=== PATIENT | female | born 1945 | race Caucasian/White ===

== ENCOUNTER → 2025-03-14 10:36 | Outpatient (BNVA) | payer MEDICARE, OTHER, SELFPAY | PROVIDERS: Family Provider Nurse Practitioner Family; PCP Nurse Practitioner Family; Visit Provider Nurse Practitioner Family | DX: I10 Essential (primary) hypertension (principal); F41.9 Anxiety disorder, unspecified; E55.9 Vitamin D deficiency, unspecified; Z79.899 Other long term (current) drug therapy; Z13.6 Encounter for screening for cardiovascular disorders | CPT/HCPCS: 80053; 80061; 81003; 82306; 83036; 84443; 85025 ==

== ENCOUNTER 2025-06-19 17:04 | Emergency (ER) | payer MEDICARE, OTHER, SELFPAY ==
[2025-06-19 17:12] VITALS: BP 191/87; PULSE 114; TEMP 36.9; O2SAT 96
--- NOTE | 2025-06-19 17:24 | ECG_ITS ---
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 Measurements Intervals [place] Rate: 103 P: 73 VT: 151 QRS: 63 QRSD: 93 T: 21 QT: 330 QTc: 432 Interpretive Statements SINUS TACHYCARDIA POSSIBLE LEFT ATRIAL ENLARGEMENT [-0.1mV P-WAVE IN V1/V2] MODERATE ST DEPRESSION [0.05+ mV ST DEPRESSION] Compared to ECG 01/28/2015 05:37:37 ST (T wave) deviation now present Sinus rhythm no longer present Electronically Signed On 06-19-2025 20:42:35 CDT by Ziyad Mckeon M.D. [email or web address]
--- OUTSIDE RECORDS SUMMARY | 2025-06-19 17:26 | XMS_ITS | Encounter Summary ---
Author Organization [facility] Address [address] [place] [address] Care Team Providers Care Marine Steamfitter Name Role Phone Kalina Benito MD Primary Care Provider +1- [phone] Encounter Details Date Type Department Care Team (Latest Contact Info) Description 07/23/1998 Outpatient Historical [facility] Family Medicine- [address] [place] [address] Ryan Hewitt, DO NO ADDRESS ON FILE Acute sinusitis, unspecified (Primary Dx) Social History Tobacco Use Types Packs/Day Years Used Date Smoking Tobacco: Never Assessed Comments Unknown Sex and Gender Information Value Date Recorded Sex Assigned at Not on file Legal 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
--- OUTSIDE RECORDS SUMMARY | 2025-06-19 17:26 | XMS_ITS | Encounter Summary ---
Author Organization [facility] Address [address] [place] [address] Care Team Providers Care Logistics Team Leader Name Role Phone Kalina Benito MD Primary Care Provider +1- [phone] Encounter Details Date Type Department Care Team (Latest Contact Info) Description 05/03/2001 Outpatient Historical [facility] Medicine [address] [phone] Ryan Hewitt DO NO ADDRESS ON FILE Sprain lumbar region (Primary Dx); Sciatica Social History Tobacco Use Types Packs/Day Years Used Date Smoking Tobacco: Never Assessed Comments Unknown Sex and Gender Information Value Date Recorded Sex Assigned at Not on file 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
--- OUTSIDE RECORDS SUMMARY | 2025-06-19 17:26 | XMS_ITS | Encounter Summary ---
Author Organization [facility] Address [address] [place] [address] Care Team Providers Care Used Car Sales Manager Name Role Phone Kalina Benito MD Primary Care Provider +1- [phone] Encounter Details Date Type Department Care Team (Latest Contact Info) Description 02/18/2006 Outpatient Historical [facility] Medicine [place] [address] [phone] Xin Hunt MD NO ADDRESS ON FILE Dizziness and Giddiness (Primary Dx); Unspecified Essential Hypertension; Volume Depletion, Unspecified Social History Tobacco Use Types Packs/Day Years Used Date Smoking Tobacco: Never Assessed Comments Unknown Sex and Gender Information Value Date Recorded Sex Assigned at Not on file 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
--- OUTSIDE RECORDS SUMMARY | 2025-06-19 17:26 | XMS_ITS | Clinical Summary ---
Author Organization [facility] Address [address] [facility] Attn: [place] [address] Care Team Providers Care Software Programmer Name Role Phone Kalina Benito MD Primary Care Provider +1- [phone] Allergies No known active allergies Active Problems Problem Noted Date Diagnosed Date Herpes zoster 12/26/2010 Increased blood pressure (not hypertension) 12/16 Family History Medical History Relation Name Comments Respiratory Disease Father Unknown Maternal Grandfather Heart Disease Maternal Grandmother Cancer Mother bone cancer Heart Disease Paternal Grandfather Cancer Paternal Grandmother Breast Cancer Neg Hx Colon Cancer Neg Hx Relation Name Status Comments Father Maternal Grandfather Maternal Grandmother Mother Paternal Grandfather Paternal Grandmother Social History Tobacco Use Types Packs/Day Years Used Date Smoking Tobacco: Never Smokeless Tobacco: Never Alcohol Use Standard Drinks/Week Comments No 0 (1 standard drink = 0.6 oz pur e alcohol) Comments Unknown Sex and Gender Information Value Date Recorded Sex Assigned at Not on file 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
--- OUTSIDE RECORDS SUMMARY | 2025-06-19 17:26 | XMS_ITS | Clinical Summary ---
Author Organization [facility] Address [address] [place] [address] Care Team Providers Care Revenue Specialist Name Role Phone Kalina Benito MD Primary Care Provider +1- [phone] Allergies No known active allergies Medications cyclobenzaprine (FLEXERIL) 10 mg Oral tabletIndication s:Low back pain Take 1 Tab by mouth 3 times daily as needed for Spasm. 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 Gender Identity Not on file Sexual Orientation Not on file Occupation Industry Job Start Date Job End Date Not on file Not on file Not on file Not on file Last Filed Vital Signs Vital Sign Reading Time Taken Comments Blood Pressure 160/100 12/04/2011 11:13 AM LIBRARY ACQUISITIONS TECHNICIAN Pulse 18 12/04/2011 11:13 AM LIBRARY ACQUISITIONS TECHNICIAN Temperature 36.4 C (97.5 F) 12/04/2011 11:13 AM LIBRARY ACQUISITIONS TECHNICIAN Respiratory Rate 18 12/04/2011 11:13 AM LIBRARY ACQUISITIONS TECHNICIAN Oxygen Saturation - - Inhaled Oxygen Concentration - - Weight 56.2 kg (124 lb) 12/04/2011 11:13 AM LIBRARY ACQUISITIONS TECHNICIAN Height 163.8 cm (5' 4.5 ) 12/04/2011 11:13 AM CS T Body Mass Index 20.96 12/04/2011 11:13 AM LIBRARY ACQUISITIONS TECHNICIAN Plan of Treatment Health Maintenance Due Date Last Done Comments DTAP/TDAP/TD VACCINES (1 - Tdap) 1964 Traditional Medicare (ACO) Annual Wellness Visit 04/24 PNEUMOCOCCAL VACCINE 50+ YEARS (1 of 1 - PCV) 04/24/19 96 ZOSTER VACCINE (1 of 2) 1996 OSTEOPOROSIS SCREENING 08/25/2018 08/25/2013 RSV VACCINE (60+ or ) (1 - 1-dose 75+ series) 2021 INFLUENZA VACCINE (#1) 2025 Insurance MEDICARE PART A AND [place] [facility] [id number] Care Teams Revenue Specialist Relationship Specialty Start Date End Date Kalina Benito MD [address] [place] [phone] PCP - General Family Practice 02/21/14
--- OUTSIDE RECORDS SUMMARY | 2025-06-19 17:26 | XMS_ITS | Encounter Summary ---
Author Organization [facility] Address [address] [place] [address] Care Team Providers Care Organic Preparation Analyst Name Role Phone Kalina Benito MD Primary Care Provider +1- [phone] Encounter Details Date Type Department Care Team (Latest Contact Info) Description 11/19/1998 Outpatient Historical [facility] Medicine [address] [phone] Ryan Hewitt, NO ADDRESS ON FILE Acute upper respiratory infections of unspecified site (Primary Dx) Social History Tobacco Use Types Packs/Day Years Used Date Smoking Tobacco: Never Assessed Comments Unknown Sex and Gender Information Value Date Recorded Sex Assigned at Not on file 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
--- OUTSIDE RECORDS SUMMARY | 2025-06-19 17:26 | XMS_ITS | Encounter Summary ---
Author Organization [facility] Address [address] [place] [address] Care Team Providers Care Freelance Graphic Designer Name Role Phone Kalina Benito MD Primary Care Provider +1- [phone] Encounter Details Date Type Department Care Team (Latest Contact Info) Description 05/04/2006 Outpatient Historical [facility] Medicine [address] [phone] Ryan Hewitt, NO ADDRESS ON FILE Generalized Osteoarthrosis, Involving Multiple Sites (Primary Dx); Breast Screening, Unspecified; Unspecified Backache Social History Tobacco Use Types Packs/Day Years Used Date Smoking Tobacco: Never Assessed Comments Unknown Sex and Gender Information Value Date Recorded Sex Assigned at Not on file Legal Sex Female 2:55 AM 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
--- OUTSIDE RECORDS SUMMARY | 2025-06-19 17:26 | XMS_ITS | Encounter Summary ---
Author Organization [facility] Address [address] [place] [address] Care Team Providers Care Vp Strategic Planning Name Role Phone Kalina Benito MD Primary Care Provider +1- [phone] Encounter Details Date Type Department Care Team (Latest Contact Info) Description 04/15/2006 Outpatient Historical [facility] Medicine [address] [phone] Ryan Hewitt DO NO ADDRESS ON FILE Unspecified Backache (Primary Dx); Unspecified Essential Hypertension Social History Tobacco Use Types Packs/Day Years Used Date Smoking Tobacco: Never Assessed Comments Unknown Sex and Gender Information Value Date Recorded Sex Assigned at Not on file Legal Sex Female 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
--- OUTSIDE RECORDS SUMMARY | 2025-06-19 17:26 | XMS_ITS | Encounter Summary ---
Author Organization [facility] Address [address] [place] [address] Care Team Providers Care Duplicate Maker Name Role Phone Kalina Benito MD Primary Care Provider +1- [phone] Encounter Details Date Type Department Care Team (Latest Contact Info) Description 12/12/2004 Outpatient Historical [facility] Family Medicine- [address] [place] [address] Xin Hunt MD NO ADDRESS ON FILE ACUTE BRONCHITIS (Primary Dx); ACUTE PHARYNGITIS Social History Tobacco Use Types Packs/Day Years Used Date Smoking Tobacco: Never Assessed Comments Unknown Sex and Gender Information Value Date Recorded Sex Assigned at Not on file Legal Sex Female 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
--- NOTE | 2025-06-19 20:35 | XRR_ITS ---
PROCEDURE INFORMATION: Exam: XR Left Shoulder Exam date and time: 06/19/2025 8:44 PM Age: 80 years old Clinical indication: Injury or trauma; Fall; Blunt trauma (contusions or hematomas); Shoulder; Left TECHNIQUE: Imaging protocol: Radiologic exam of the left shoulder. Views: 2 or more views. COMPARISON: No relevant prior studies available. FINDINGS: Bones/joints: There is demonstration of a slightly depressed fracture of the distal end left clavicle. The slight displacement and angulated appearance to the fracture fragments the distal end of the clavicle and AC joint remain in anatomical alignment. Soft tissues: Normal. XR/XR shoulder LT min 2V* [id number] IMPRESSION: Fracture of the distal clavicle slightly angulated and minimally displaced.
--- NOTE | 2025-06-19 21:59 | ED_ITS ---
HPI - Fall 2 General: Chief Complaint: Fall Stated Complaint: lt shoulder inj Time Seen by Provider: 06/19/25 19:52 History of Present Illness: 80-year-old female presents emergency ro om for left shoulder pain she had a fall 4 days ago. She was outside working she got lightheaded did not feel well went inside as she went inside her she got more dizzy and then collapsed. She denies any chest pain. She has not had any difficulty since then other than some bruising and pain after left shoulder. Is worse when she moves it. She otherwise been awake and active she has had a bit of a headache. She did strike her head and says some bruising on her left mandaen as well no further episodes since then. No focal neurologic deficits. Associated symptoms-after fall: Denies abdominal pain, chest pain or neck pain Related Data Previous Rx's ?Medication ?Instructions ?Recorded lisinopril 10 mg tablet See Rx Instructions .Route 0 06/19/25 .COMPLEX #90 tabs Allergies Allergy/AdvReac Type Severity Reaction Status Date / Time No Known Allergies Allergy Verified 06/19/25 17:20 Review of Systems 2 Const: Denies: fever(s) or chills Card: Denies: chest pain Resp: Denies: dyspnea GI: Denies: abdominal pain : Denies: dysuria, urinary frequency or urinary urgency Musc: Reports: joint pain; Denies: neck pain or back pain Skin/Breast: Denies: rash PFSH ED 2 PFSH: Medical History Acute pain of left shoulder due to trauma Syncope and collapse Anxiety Mixed hyperlipidemia Pharyngitis Essential hypertension RSV exposure Social History Smoking and tobacco/nicotine status: tobacco/nicotine user, details unknown Physical Exam 2 Const: COMMON NORMALS: no acute distress GENERAL APPEARANCE: cooperative and comfortable ORIENTATION/CONSCIOUSNESS: Yes awake, Yes oriented to person, Yes oriented to place and Yes oriented to time HENMT: COMMON NORMALS: normocephalic, atraumatic and hearing grossly normal bilaterally HEAD & SCALP: normocephalic and atraumatic Neck/C-Spine: OTHER: No pain with palpation along the spinous process of the cervical spine patient flex extend rotate side bends without any pain difficulty or step-off. Resp: COMMON NORMALS: normal respiratory effort, No retractions, No use of accessory muscles and clear to auscultation bilaterally AUSCULTATION: clear to auscultation bilaterally Cardio: COMMON NORMALS: regular rate, regular rhythm and No murmurs present (Cardio) RATE: regular rate RHYTHM: regular rhythm GI: COMMON NORMALS: Soft to palpation and No hepatosplenomegaly present A USCULTATION: Yes normoactive bowel sounds PALPATION: Yes Soft to palpation, No Tenderness to palpation present (GI), No Guarding due to palpation present (GI) and Yes No hepatosplenomegaly present Extremity: COMMON NORMALS: normal to inspection, capillary refill normal, no clubbing, cyanosis or edema, no calf tenderness and no pedal edema Neuro: SENSORIUM/ORIENTATION: Yes oriented to person, Yes oriented to place and Yes oriented to time Skin: COMMON NORMALS: no rashes or lesions noted GENERAL SKIN EXAM: no rashes or lesions noted Course 2 Vital Signs: Vital signs: Vital Signs Temperature 98.4 F 06/19/25 17:12 Pulse Rate 96 06/19/25 23:50 Blood Pressure 188/101 06/19/25 23:50 Pulse Oximetry 95 06/19/25 23:50 Oxygen Delivery Me thod Room Air 06/19/25 23:50 MDM - Fall Medical Decision Making Left distal clavicle fracture. Will place patient in a sling. Laboratory test CT head unremarkable. Clinically cleared her cervical spine. Chest x-ray is normal. Patient is having no further symptoms will discharge home set up for outpatient echocardiogram and 72-hour Holter monitor follow-up with your primary care doctor Medical Records I reviewed the patient's medical records. Lab Data I reviewed the patient's lab results. 06/19/25 22:56 06/19/25 22:56 Radiology Impressions Shoulder X-Ray 06/19/25 20:35 IMPRESSION: Fracture of the distal clavicle slightly angulated and minimally displaced. Chest X-Ray 06/19/25 22:10 IMPRESSION: Hypoventilatory changes lower lobes could represent atelectasis no pneumothoraces. Acute distal left clavicular fracture. Head CT 06/19/25 22:10 IMPRESSION: No acute intracranial abnormality. Laboratory Results WBC 8.46 10^3/uL (3.29-11.43) 06/19/25 22:56 RBC 5.17 10^6/uL (3.85-5.65) 06/19/25 22:56 Hgb 15.10 g/dL (11.27-16.99) 06/19/25 22:56 Hct 44.7 % (36-47) 06/19/25 22:56 MCV 86.5 fl (85-98) 06/19/25 22:56 MCH 29.2 pg (27-33) 06/19/25 22:56 MCHC 33.8 g/dL (30-55) 06/19/25 22:56 RDW 12.9 % (12.1-15.1) 06/19/25 22:56 Plt Count 406 10^3/cmm (157-399) H 06/19/25 22:56 MPV 9.5 fL (7.4-10.4) 06/19/25 22:56 Neut % (Auto) 64.3 % 06/19/25 22:56 Lymph % (Auto) 23.2 % 06/19/25 22:56 [place] % (Auto) 10.9 % 06/19/25 22:56 Eos % (Auto) 0.9 % 06/19/25 22:56 Baso % (Auto) 0.5 % 06/19/25 22:56 Neut # (Auto) 5.44 10^3/uL (1.8-7.7) 06/19/25 22:56 Lymph # (Auto) 2.0 10^3/uL (0.8-4.8) 06/19/25 22:56 [place] # (Auto) 0.9 10^3/uL (0.2-0.9) 06/19/25 22:56 Eos # (Auto) 0.1 10^3/uL (0.0-0.8) 06/19/25 22:56 Baso # (Auto) 0.0 10^3/uL (0.0-0.1) 06/19/25 22:56 Nucleated RBC % (auto) 0 % 06/19/25 22:56 Nucleated RBCs # 0.0 /100WBC 06/19/25 22:56 Sodium 135 mmol/L (136-145) L 06/19/25 22:56 Potassium 4.4 mmol/L (3.5-5.1) 06/19/25 22:56 Chloride 98 mmol/L (98-107) 06/19/25 22:56 Carbon Dioxide 24 mmol/L (22-29) 06/19/25 22:56 Anion Gap 17.4 (5-19) 06/19/25 22:56 BUN 10 mg/dL (8-23) 06/19/25 22:56 Creatinine 0.8 mg/dL (0.5-0.9) 06/19/25 22:56 GFR Calculation Not Reportable 06/19/25 22:56 Glucose 91 mg/dL (65-115) 06/19/25 22:56 Calculated Osmolality 279 mOsm/kg (285-295) L 06/19/25 22:56 Calcium 9.5 mg/dL (8.5-10.5) 06/19/25 22:56 Total Bilirubin 0.5 mg/dL (0.15-1.2) 06/19/25 22:56 AST 19 U/L (0-32) 06/19/25 22:56 ALT 15 U/L (0-33) 06/19/25 22:56 Alkaline Phosphatase 64 U/L (35-105) 06/19/25 22:56 Total Protein 7.7 g/dL (6.6-8.7) 06/19/25 22:56 Albumin 4.7 g/dL (3.5-5.2) 06/19/25 22:56 Globulin 3.0 g/dL (1.3-4.6) 06/19/25 22:56 All radiology interpretation(s) finalized by discharge Discharge Plan Discharge Patient Disposition: Home Clinical Impression: Syncope, Fx clavicle, acrom end-closed Condition: Stable Prescriptions: No Action lisinopril 10 mg tablet See Rx Instructions .ROUTE .COMPLEX Qty: 90 1RF Dose Instruction: TAKE 1 TABLET BY MOUTH DAILY Rx Instructions: TAKE 1 TABLET BY MOUTH DAILY Discharge Orders: Discharge ED (Routine); Ordered 06/20/25 Ordered By: Drew Moreno Referrals: ALFREDO Ojeda, AUTOMOTIVE CONSULTANT [Primary Care Provider, Family Practice] Patient Instructions: Opioid Safety, Pain Management, Patient Portal & [facility]ia Instructions Activity Restrictions/Additional Instructions: [facility]. It is very important that you follow up as instructed or that you return to the Emergency Department should you have concerns or if your condition changes or worsens in any way. Emergency department visits are focused on emergent conditions, in some cases you may require further evaluation on an outpatient basis. You were seen in emergency room a few days after syncopal episode. Your laboratory test CT of your head were all normal x-rays did show a distal clavicle fracture on the left side which is why you have the bruising on the chest. Will discharge you home and recommend that you have an outpatient 72- hour Holter monitor and echocardiogram case consultant will call to set these up follow-up with your primary care doctor (Please note that included in your discharge packet is information concerning opioid safety and pain management. This information is given to all patients were discharged from the ER regardless of their discharge diagnosis or the medicines they usually take or are prescribed.) Print Language: Korean Coding Level of Care Code ED Machinist Apprentice Wood for Amilcar White
--- NOTE | 2025-06-19 22:10 | XRR_ITS ---
PROCEDURE INFORMATION: Exam: XR Chest Exam date and time: 06/19/2025 10:11 PM Age: 80 years old Clinical indication: Injury or trauma; Fall; Blunt trauma (contusions or hematomas); Additional info: Dyspnea/cough TECHNIQUE: Imaging protocol: Radiologic exam of the chest. Views: 1 view. COMPARISON: CR (CHEST, ) 06/19/2025 8:44 PM FINDINGS: Lungs: There are vague opacities present lower lobes could represent atelectasis. Pleural spaces: There are no pneumothoraces. Heart/Mediastinum: Heart is normal in size. Bones/joints: There is demonstration of a fracture involving the distal left clavicle. No additional bony abnormalities. XR/XR chest 1V portable [id number] IMPRESSION: Hypoventilatory changes lower lobes could represent atelectasis no pneumothoraces. Acute distal left clavicular fracture.
--- NOTE | 2025-06-19 22:10 | CTR_ITS ---
PROCEDURE INFORMATION: Exam: CT Head Without Contrast Exam date and time: 06/19/2025 10:29 PM Age: 80 years old Clinical indication: Injury or trauma; Fall; Blunt trauma (contusions or hematomas); With loss of consciousness; Not specified; Injury date: 06/16/2025 TECHNIQUE: Imaging protocol: Computed tomography of the head without contrast. Radiation optimization: All CT scans at this facility use at least one of these dose optimization techniques: automated exposure control; mA and/or kV adjustment per patient size (includes targeted exams where dose is matched to clinical indication); or iterative reconstruction. COMPARISON: No relevant prior studies available. RADIATION DOSE METRICS: Total DLP (mGy-cm): 1098.7 FINDINGS: Brain: No acute intra-axial hemorrhage. No masses. Normal sumner-white matter differentiation. No midline shift or mass effect. 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 Cerebral ventricles: No ventriculomegaly. Paranasal sinuses: Visualized sinuses are unremarkable. No fluid levels. Mastoid air cells: Visualized mastoid air cells are well aerated. Bones: Unremarkable. No acute fracture. Soft tissues: Unremarkable. CT/CT head wo con* [id number] IMPRESSION: No acute intracranial abnormality.
[2025-06-19 22:21] VITALS: BP 175/106; PULSE 104; O2SAT 99
[2025-06-19 22:23] VITALS: BP 175/106; PULSE 103; O2SAT 99
[2025-06-19 23:00] LABS: Hematocrit 44.7 % (36-47); Hemoglobin 15.10 g/dL (11.27-16.99); Mean Corpuscular HGB Conc 33.8 g/dL (30-55); Mean Corpuscular Hemoglobin 29.2 pg (27-33); Mean Corpuscular Volume 86.5 fl (85-98); Nucleated Red Blood Cells % 0 %; Platelet Count 406 10^3/cmm (157-399); Red Blood Count 5.17 10^6/uL (3.85-5.65); White Blood Count 8.46 10^3/uL (3.29-11.43)
[2025-06-19 23:18] LABS: Alanine Aminotransferase 15 U/L (0-33); Albumin Level 4.7 g/dL (3.5-5.2); Alkaline Phosphatase 64 U/L (35-105); Anion Gap 17.4 (5-19); Aspartate Amino Transferase 19 U/L (0-32); Blood Urea Nitrogen 10 mg/dL (8-23); Calcium 9.5 mg/dL (8.5-10.5); Carbon Dioxide 24 mmol/L (22-29); Chloride 98 mmol/L (98-107); Creatinine Clr Calc Pharmacy 52.5082; Globulin 3.0 g/dL (1.3-4.6); Glucose 91 mg/dL (65-115); Osmolality Calculated 279 mOsm/kg (285-295); Potassium 4.4 mmol/L (3.5-5.1); Sodium 135 mmol/L (136-145); Total Protein 7.7 g/dL (6.6-8.7)
[2025-06-19 23:50] VITALS: BP 188/101; PULSE 96; O2SAT 95
[2025-06-20 00:22] VITALS: BP 174/86; PULSE 93; O2SAT 98
[2025-06-20 00:23] VITALS: BP 174/86; PULSE 93; O2SAT 96
== END 2025-06-20 00:58 | disposition home or self-care (01) ==
PROVIDERS: Emergency Provider Family Medicine; PCP Nurse Practitioner Family
DX: R55 Syncope and collapse (principal); S42.032A Displaced fracture of lateral end of left clavicle, initial encounter for closed fracture; W19.XXXA Unspecified fall, initial encounter; I10 Essential (primary) hypertension; E78.2 Mixed hyperlipidemia
CPT/HCPCS: 36415; 70450; 71045; 73030; 80053; 85025; 93005; 99285

== ENCOUNTER → 2025-06-29 12:44 | Outpatient (BNVA) | payer MEDICARE, OTHER, SELFPAY | PROVIDERS: PCP Nurse Practitioner Family; Visit Provider Student in an Organized Health Care Education/Training Program | DX: S42.032A Displaced fracture of lateral end of left clavicle, initial encounter for closed fracture (principal); W19.XXXA Unspecified fall, initial encounter | CPT/HCPCS: 73000 ==

== ENCOUNTER 2025-06-29 14:23 | Outpatient (CLI) | payer MEDICARE, OTHER, SELFPAY | END 2025-06-29 14:24 | disposition home or self-care (01) | LOC: SPT 14:24 | PROVIDERS: PCP Nurse Practitioner Family; Visit Provider Student in an Organized Health Care Education/Training Program | DX: Z46.89 Encounter for fitting and adjustment of other specified devices (principal); S42.002D Fracture of unspecified part of left clavicle, subsequent encounter for fracture with routine healing; X58.XXXD Exposure to other specified factors, subsequent encounter | CPT/HCPCS: L3650 ==

== ENCOUNTER 2025-07-19 13:17 | Outpatient (CLI) | payer MEDICARE, OTHER, SELFPAY ==
--- NOTE | 2025-07-19 13:30 | USCV_ITS ---
Anup Leann Age: 80 Gender: F : 1945 Exam Date: 07/19/2025 13:40 Ordering Phys: ALFREDO Ojeda APRN Technologist: Exam Location: [facility] [place] Indication: cp sob BP: 130 / 85 HR: 78 Rhythm: Sinus Technical Quality: Adequate MEASUREMENTS (Male / Female) Normal Values 2D ECHO LV Diastolic Diameter PLAX 3.5 cm 4.2 - 5.9 / 3.9 - 5.3 cm IVS Diastolic Thickness 1.2 cm 0.6 - 1.0 / 0.6 - 0.9 cm IVS Systolic Thickness 1.3 cm LVPW Diastolic Thickness 1.1 cm 0.6 - 1.0 / 0.6 - 0.9 cm LVPW Systolic Thickness 1.3 cm LVOT Diameter 1.7 cm LV Ejection Fraction 2D Teich 65.6 % LV Ejection Fraction MOD 4C 70.0 % LV Ejection Fraction MOD 2C 62.5 % LV Ejection Fraction 2C AL 63.3 % LA Diameter 2.5 cm RA Systolic Volume 4C AL 28.6 ml RA Systolic Volume 4C MOD 27.6 ml Aorta at Sinotubular Diameter 1.7 cm IVC Diameter 1.4 cm M-MODE LA Ao Ratio MM 1.1 AV Cusp Separation MM 2.4 cm DOPPLER AV Peak Velocity 147.8 cm/s LVOT Peak Velocity 111.0 cm/s AV Area Cont Eq vti 1.8 cm squared AV Area Cont Eq pk 1.6 cm squared MV Area PHT 4.1 cm squared Mitral E to A Ratio 0.8 TR Peak Velocity 199.0 cm/s TR Peak Gradient 15.8 mmHg TV Peak E Velocity 71.0 cm/s PV Peak Velocity 156.0 cm/s FINDINGS Left Ventricle Normal left ventricular size, systolic function and wall thickness, with no regional wall motion abnormalities. Left ventricular ejection fraction is estimated at 60 %. Grade I/IV diastolic dysfunction (abnormal relaxation filling pattern), normal to mildly elevated filling pressures. Right Ventricle Normal right ventricular size and systolic function. Right Atrium Normal right atrial size. Left Atrium Normal left atrial size. IA Septum Normal appearance of the interatrial septum. Mitral Valve Mildly thickened mitral valve. No mitral valve stenosis. Trace mitral valve regurgitation. Aortic Valve Moderate aortic valve calcification. No aortic valve stenosis. Trace aortic valve regurgitation. Tricuspid Valve Normal tricuspid valve structure. No tricuspid valve stenosis or regurgitation. Normal pulmonary pressure. Pulmonic Valve Normal pulmonic valve structure. No pulmonic valve stenosis or regurgitation. Pericardium No pericardial effusion. Aorta Normal diameter of the aortic root and ascending thoracic aorta. IVC Normal IVC diameter. CONCLUSIONS Normal left ventricular size, systolic function and wall thickness, with no regional wall motion abnormalities. Left ventricular ejection fraction is estimated at 60 %. Grade I/IV diastolic dysfunction (abnormal relaxation filling pattern), normal to mildly elevated filling pressures. Moderate aortic valve calcification. No aortic valve stenosis. Trace aortic valve regurgitation. There is no pericardial effusion. Right atrial pressure is around 5 mm of mercury. Lilly Peterson MD (Electronically Signed) Final Date: 26 July 2025 16:33 S
== END 2025-07-19 13:18 | disposition home or self-care (01) ==
LOC: RAD 13:20
PROVIDERS: PCP Nurse Practitioner Family; Visit Provider Nurse Practitioner Family
DX: I10 Essential (primary) hypertension (principal); R55 Syncope and collapse; I35.8 Other nonrheumatic aortic valve disorders
CPT/HCPCS: 93306

== ENCOUNTER → 2025-07-27 09:19 | Outpatient (BNVA) | payer MEDICARE, OTHER, SELFPAY | PROVIDERS: PCP Nurse Practitioner Family; Visit Provider Physician Assistant | DX: S42.002D Fracture of unspecified part of left clavicle, subsequent encounter for fracture with routine healing (principal); X58.XXXD Exposure to other specified factors, subsequent encounter | CPT/HCPCS: 73030; 99024; 99213 ==

== ENCOUNTER 2025-08-15 12:00 | Outpatient (RCR) | payer MEDICARE, OTHER, SELFPAY | END 2025-08-17 23:59 | disposition home or self-care (01) | LOC: WPT 12:00 | PROVIDERS: PCP Nurse Practitioner Family; Visit Provider Physician Assistant | DX: S42.002D Fracture of unspecified part of left clavicle, subsequent encounter for fracture with routine healing (principal); X58.XXXD Exposure to other specified factors, subsequent encounter | CPT/HCPCS: 97110; 97112; 97162; 97530 ==

== ENCOUNTER → 2025-08-28 15:19 | Outpatient (BNVA) | payer MEDICARE, OTHER, SELFPAY | PROVIDERS: PCP Nurse Practitioner Family; Visit Provider Physician Assistant | DX: S42.002D Fracture of unspecified part of left clavicle, subsequent encounter for fracture with routine healing (principal); X58.XXXD Exposure to other specified factors, subsequent encounter | CPT/HCPCS: 73000; 99024; 99213 ==